=== PATIENT | female | born 1930 | race Caucasian/White ===

== ENCOUNTER 2017-02-11 08:32 | Emergency (ER) | payer OTHER ==
[~2017-02-11] VITALS: Ht 152.4 cm; Wt 61.2 kg
[~2017-02-11 08:32] MED LIST: BP PILL; DILANTIN PO; ENAL20TA PO; ENOX40SY4 SQ; IBUP800T PO; LORA-446 PO; METO25TA35 PO; OMEP-110 PO; OXYC-302 PO; PHEN100C4 PO; SLEEPING PILL; TRAM50TA2 PO
[2017-02-11 08:33] VITALS: BP 157/81
[2017-02-11] MEDS ORDERED: RANI150C PO (09:48)
[2017-02-11] MEDS ORDERED: ZOLP-413 PO (09:48)
[2017-02-11 10:12] LABS: ASPARTATE AMINO TRANSFERASE 24 U/L (15-37); BLOOD UREA NITROGEN 15 mg/dL (7-18)
== END 2017-02-11 10:59 | disposition home or self-care (01) ==
LOC: ED 10:18
DX: R21 Rash and other nonspecific skin eruption (principal); I10 Essential (primary) hypertension
CPT/HCPCS: 36415; 80053; 85025; 99284

== ENCOUNTER 2017-03-11 14:32 | Emergency (ER) | payer OTHER ==
[~2017-03-11] VITALS: Ht 147.3 cm; Wt 60.7 kg
[~2017-03-11 14:32] MED LIST changes: +RANI150C PO; +ZOLP-413 PO
[2017-03-11] MEDS ORDERED: ASPIRIN 81 MG TABLET CHEW ONE (15:11)
[2017-03-11] MEDS ORDERED: MORPHINE SULFATE 4 MG/ML, 1ML ONE (15:11)
[2017-03-11] MEDS ORDERED: ASPIRIN 81 MG TABLET CHEW PO ONE (15:30)
[2017-03-11] MEDS ORDERED: MORPHINE SULFATE 4 MG/ML, 1ML IVPush PRN (15:30)
[2017-03-11 15:48] LABS: BLOOD UREA NITROGEN 13 mg/dL (7-18)
[2017-03-11 15:54] LABS: ASPARTATE AMINO TRANSFERASE 24 U/L (15-37)
[2017-03-11 15:58] LABS: IS PT STATUS REG ER OR PRE ER? YES
[2017-03-11] MEDS ORDERED: OMNIPAQUE 350 MG/ML, 100ML BOTTLE ONE (16:56)
[2017-03-11 17:02] VITALS: BP 163/79
[2017-03-11] MEDS ORDERED: SEIZURE MED PO (17:02)
== END 2017-03-11 18:48 | disposition home or self-care (01) ==
LOC: ED 17:28
DX: R07.9 Chest pain, unspecified (principal); I10 Essential (primary) hypertension; Z85.3 Personal history of malignant neoplasm of breast; Z90.49 Acquired absence of other specified parts of digestive tract; Z90.10 Acquired absence of unspecified breast and nipple
CPT/HCPCS: 36415; 71010; 71275; 80053; 83880; 84484; 85025; 85379; 85610; 85730; 93005; 96374; 99285; Q9967

== ENCOUNTER 2017-11-13 01:10 | Emergency (ER) | payer OTHER ==
[~2017-11-13] VITALS: Ht 157.5 cm; Wt 65.0 kg
[~2017-11-13 01:10] MED LIST changes: +IBUP-1223 PO; -IBUP800T PO; +PHEN50TA4 PO; +SEIZURE MED PO
[2017-11-13 01:11] VITALS: BP 163/87
== END 2017-11-13 03:34 | disposition home or self-care (01) ==
LOC: ED 01:42
DX: S06.0X0A Concussion without loss of consciousness, initial encounter (principal); S16.1XXA Strain of muscle, fascia and tendon at neck level, initial encounter; I10 Essential (primary) hypertension; W01.0XXA Fall on same level from slipping, tripping and stumbling without subsequent striking against object, initial encounter; Y93.01 Activity, walking, marching and hiking; Y92.89 Other specified places as the place of occurrence of the external cause; Y99.8 Other external cause status
CPT/HCPCS: 70450; 72125; 99284

== ENCOUNTER → 2018-03-18 | Outpatient (CLI) | payer OTHER | END | disposition home or self-care (01) | LOC: CFH 07:45 | PROVIDERS: ATTEND Neurological Surgery | DX: M47.896 Other spondylosis, lumbar region (principal); M54.16 Radiculopathy, lumbar region | CPT/HCPCS: 72110; 72148 ==

== ENCOUNTER 2018-06-13 13:39 | Emergency (ER) | payer OTHER ==
[~2018-06-13] VITALS: Ht 142.2 cm; Wt 65.0 kg
[2018-06-13 13:45] VITALS: BP 129/66
== END 2018-06-13 15:37 | disposition home or self-care (01) ==
LOC: ED 15:36
DX: G89.11 Acute pain due to trauma (principal); M25.562 Pain in left knee; X58.XXXA Exposure to other specified factors, initial encounter; Y93.89 Activity, other specified; Y92.89 Other specified places as the place of occurrence of the external cause; Y99.8 Other external cause status
CPT/HCPCS: 99284

== ENCOUNTER 2018-06-18 13:09 | Emergency (ER) | payer OTHER ==
[~2018-06-18] VITALS: Ht 144.8 cm; Wt 63.6 kg
[2018-06-18] MEDS ORDERED: LIDOCAINE 2%, 20ML INFIL ONE (15:00)
[2018-06-18 17:58] VITALS: BP 162/83
== END 2018-06-18 18:07 | disposition home or self-care (01) ==
LOC: ED 14:41
DX: G89.11 Acute pain due to trauma (principal); M25.562 Pain in left knee; G89.29 Other chronic pain; G40.909 Epilepsy, unspecified, not intractable, without status epilepticus; M19.90 Unspecified osteoarthritis, unspecified site; I10 Essential (primary) hypertension; X58.XXXA Exposure to other specified factors, initial encounter; Y93.01 Activity, walking, marching and hiking; Y92.098 Other place in other non-institutional residence as the place of occurrence of the external cause; Y99.8 Other external cause status; Z85.3 Personal history of malignant neoplasm of breast; Z90.49 Acquired absence of other specified parts of digestive tract; Z90.10 Acquired absence of unspecified breast and nipple
CPT/HCPCS: 20610; 82945; 83615; 84157; 84560; 85810; 87070; 87205; 89050; 89060; 99284; J3490

== ENCOUNTER 2019-03-06 13:51 | Inpatient (IN) | payer MEDICARE ==
[~2019-03-06] VITALS: Ht 144.8 cm; Wt 60.0 kg
--- NOTE | 2019-03-06 14:50 | NUR ---
PT TO ROOM FROM LOBBY AT THIS TIME.
--- NOTE | 2019-03-06 14:59 | NUR ---
THIS IS A 88 Y/O FEMAL ARRIVING TO THE ED WITH C/O OF LOWER RECTAL PAIN X 1 WEEK. PT REPORTS HX OF HEMMOROIDS. PT REPORTS SHE HAS SCANT BLOOD WITH WIPING. PT DENIES GROSS BLACK STOOLS. PT HAS HAD BM WITH PAIN. PT REPROTS SHE HAS BEEN TAKING ALL HER MEDICATIONS PERSCRIBED. PT ABLE TO AMBULATE WITH 1 PERSON ASSIST. PT ASSITED TO BATHROOM BY FAMILY FOR UA SAMPLE.
--- NOTE | 2019-03-06 15:15 | NUR ---
PA TO BEDSIDE FOR ASSESSMENT
--- NOTE | 2019-03-06 15:20 | NUR ---
UPON ASSESSMENT OF PT RECTAL AREA, A LARGE PROTRUSION NOTED FORCING THE ANUS TO STICK OUT. NO OBVIOUS HEMRROIDS NOTED.
--- NOTE | 2019-03-06 15:24 | NUR ---
PT TRIED TO URINATE BUT STATES SHE IS UNABLE TO URINATE AT THIS TIME
--- NOTE | 2019-03-06 15:31 | NUR ---
pt ambulatory to bathroom with assistance of family members
--- NOTE | 2019-03-06 16:02 | NUR ---
pt provided urine sample, tubed to lab with blood sample from [facility]
[2019-03-06 16:12] LABS: BASOPHILS # (AUTO) 0.02 x10^3/uL (0-0.1); BASOPHILS % (AUTO) 0 % (0-1); EOSINOPHILS # (AUTO) 0.21 x10^3/uL (0-0.4); EOSINOPHILS % (AUTO) 3 % (1-7); LYMPHOCYTES % (AUTO) 16 % (22-44); MD NO; MEAN CORPUSCULAR HEMOGLOBIN 34.4 pg (27.0-34.8); MEAN CORPUSCULAR HGB CONC 34.1 g/dL (32.4-35.8); MEAN CORPUSCULAR VOLUME 100.9 fL (80-100); MEAN PLATELET VOLUME 7.3 fL (7.4-10.4); MONOCYTES # (AUTO) 0.69 x10^3/uL (0.2-0.8); MONOCYTES % (AUTO) 9 % (2-9); NEUTROPHILS # (AUTO) 5.41 x10^3/uL (1.8-6.8); NEUTROPHILS % (AUTO) 72 % (42-75); PLATELET COUNT 307 x10^3/uL (130-400); RED BLOOD COUNT 4.42 x10^6/uL (3.82-5.3); RED CELL DISTRIBUTION WIDTH 12.5 % (9.6-15.2)
[2019-03-06 16:18] LABS: CULTURE INDICATED? YES; MICROSCOPIC AUTO
[2019-03-06 16:23] LABS: ALBUMIN 3.8 g/dL (3.4-5.0); ANION GAP 5 mmol/L (5-15); CALCIUM 8.7 mg/dL (8.5-10.1); CHLORIDE 94 mmol/L (98-107)
[2019-03-06 16:26] LABS: ALANINE AMINOTRANSFERASE 24 U/L (12-78); ALKALINE PHOSPHATASE 100 U/L (45-117); BILIRUBIN,TOTAL 0.6 mg/dL (0.2-1.0); CREATININE 0.59 mg/dL (0.55-1.02); TOTAL PROTEIN 7.8 g/dL (6.4-8.2)
--- NOTE | 2019-03-06 16:39 | NUR ---
PT TAKEN TO CT
[2019-03-06] MEDS ORDERED: OMNIPAQUE 350 MG/ML, 100ML BOTTLE ONE (17:02)
--- NOTE | 2019-03-06 17:16 | NUR ---
ALL RESULTS BACK AT THIS TIME, CHART UP FOR RECHECK
--- NOTE | 2019-03-06 17:48 | NUR ---
report given to Mary conveyor mechanic
[2019-03-06] MEDS ORDERED: BISACODYL 10 MG SUPP PR PRN (19:30)
[2019-03-06] MEDS ORDERED: hydrALAzine 20 MG/ML, 1ML IVPush PRN (19:30)
[2019-03-06] MEDS ORDERED: ONDANSETRON 2MG/ML, 2ML IVPush PRN (19:30)
[2019-03-06] MEDS ORDERED: LIDODERM 5% PATCH TD PRN (19:30)
[2019-03-06] MEDS: LORazepam 1MG TABLET PO PRN (22:18)
[2019-03-06] MEDS: PHENYTOIN 100 MG CAPSULE PO SCH (22:18)
[2019-03-06] MEDS: ENALAPRIL 20MG TABLET PO SCH (22:18)
[2019-03-06] MEDS: ACETAMINOPHEN 325 MG TABLET PO PRN (22:47)
[2019-03-06] MEDS: TEMAZEPAM 15 MG CAPSULE PO PRN (23:44)
[2019-03-06] MEDS: CEFTRIAXONE PMX 1GM/50ML 50 ML IV SCH (23:44)
[2019-03-07 01:48] VITALS: BP 148/62
[2019-03-07 04:37] LABS: BASOPHILS # (AUTO) 0.03 x10^3/uL (0-0.1); BASOPHILS % (AUTO) 0 % (0-1); EOSINOPHILS # (AUTO) 0.25 x10^3/uL (0-0.4); EOSINOPHILS % (AUTO) 4 % (1-7); LYMPHOCYTES # (AUTO) 1.12 x10^3/uL (1-3.4); LYMPHOCYTES % (AUTO) 18 % (22-44); MD NO; MEAN CORPUSCULAR HEMOGLOBIN 33.8 pg (27.0-34.8); MEAN CORPUSCULAR HGB CONC 33.6 g/dL (32.4-35.8); MEAN CORPUSCULAR VOLUME 100.6 fL (80-100); MEAN PLATELET VOLUME 7.3 fL (7.4-10.4); MONOCYTES % (AUTO) 11 % (2-9); NEUTROPHILS # (AUTO) 4.01 x10^3/uL (1.8-6.8); NEUTROPHILS % (AUTO) 66 % (42-75); PLATELET COUNT 264 x10^3/uL (130-400); RED BLOOD COUNT 4.31 x10^6/uL (3.82-5.3); RED CELL DISTRIBUTION WIDTH 12.2 % (9.6-15.2)
[2019-03-07 04:43] LABS: ANION GAP 8 mmol/L (5-15); CHLORIDE 96 mmol/L (98-107)
[2019-03-07] MEDS: PHENYTOIN 100 MG CAPSULE PO SCH ×3 (06:08→21:01)
[2019-03-07 08:23] VITALS: BP 138/77
[2019-03-07] MEDS: ENALAPRIL 20MG TABLET PO SCH ×2 (09:12→21:01)
[2019-03-07 13:47] VITALS: BP 144/78
[2019-03-07] MEDS ORDERED: GOLYTELY 4,000ML ORAL.SOL PO ONE (17:00)
[2019-03-07 20:57] VITALS: BP 148/84
[2019-03-07] MEDS: LORazepam 1MG TABLET PO PRN (21:05)
[2019-03-07] MEDS: ACETAMINOPHEN 325 MG TABLET PO PRN (21:22)
[2019-03-07] MEDS: CEFTRIAXONE PMX 1GM/50ML 50 ML IV SCH (22:55)
[2019-03-07] MEDS: TEMAZEPAM 15 MG CAPSULE PO PRN (22:55)
[2019-03-08 00:42] VITALS: BP 143/78
[2019-03-08 07:32] LABS: BASOPHILS # (AUTO) 0.01 x10^3/uL (0-0.1); BASOPHILS % (AUTO) 0 % (0-1); EOSINOPHILS % (AUTO) 3 % (1-7); LYMPHOCYTES # (AUTO) 0.86 x10^3/uL (1-3.4); LYMPHOCYTES % (AUTO) 15 % (22-44); MD NO; MEAN CORPUSCULAR HEMOGLOBIN 33.2 pg (27.0-34.8); MEAN CORPUSCULAR HGB CONC 33.7 g/dL (32.4-35.8); MEAN CORPUSCULAR VOLUME 98.7 fL (80-100); MEAN PLATELET VOLUME 6.9 fL (7.4-10.4); MONOCYTES # (AUTO) 0.71 x10^3/uL (0.2-0.8); MONOCYTES % (AUTO) 12 % (2-9); NEUTROPHILS # (AUTO) 4.03 x10^3/uL (1.8-6.8); NEUTROPHILS % (AUTO) 69 % (42-75); PLATELET COUNT 264 x10^3/uL (130-400); RED CELL DISTRIBUTION WIDTH 12.6 % (9.6-15.2)
[2019-03-08 07:41] LABS: ALANINE AMINOTRANSFERASE 22 U/L (12-78); ALBUMIN 3.1 g/dL (3.4-5.0); ANION GAP 6 mmol/L (5-15); CALCIUM 8.1 mg/dL (8.5-10.1); CHLORIDE 97 mmol/L (98-107)
[2019-03-08 07:44] LABS: ALKALINE PHOSPHATASE 64 U/L (45-117); BILIRUBIN,TOTAL 0.4 mg/dL (0.2-1.0); CREATININE 0.64 mg/dL (0.55-1.02); TOTAL PROTEIN 6.5 g/dL (6.4-8.2)
[2019-03-08 07:50] VITALS: BP 120/57
[2019-03-08] MEDS: ENALAPRIL 20MG TABLET PO SCH (09:00)
[2019-03-08] MEDS: PHENYTOIN 100 MG CAPSULE PO SCH (09:00)
[2019-03-08] MEDS ORDERED: PROPOFOL 10 MG/ML, 20ML ONE (09:43)
[2019-03-08] MEDS ORDERED: ONDANSETRON ODT 8 MG PO PRN (10:00)
[2019-03-08] MEDS ORDERED: ONDANSETRON 2MG/ML, 2ML IV PRN (10:00)
[2019-03-08] MEDS ORDERED: FENTANYL PF 100 MCG/2ML IV PRN (10:00)
[2019-03-08] MEDS ORDERED: ACETAMINOPHEN 325 MG TABLET PO PRN (10:00)
[2019-03-08] MEDS ORDERED: OXYcodone 5 MG/5 ML ORAL.SOL UDC PO PRN (10:00)
[2019-03-08 13:45] VITALS: BP 117/75
[2019-03-08] MEDS ORDERED: SENN17.23 PO (14:52)
== END 2019-03-08 16:30 | disposition home or self-care (01) | DRG 394 ==
LOC: ED 17:14 → EDIP 17:15 → ED 17:20 → 3NW 18:47 → DCLOUNGE 03-08 16:23
PROVIDERS: ADMIT Internal Medicine; ATTEND Internal Medicine
PROC: 0DJD8ZZ Inspection of Lower Intestinal Tract, Via Natural or Artificial Opening Endoscopic (ICD-10-PCS; principal; 2019-03-08 10:00)
DX: K64.1 Second degree hemorrhoids (principal); K62.5 Hemorrhage of anus and rectum; E87.1 Hypo-osmolality and hyponatremia; N39.0 Urinary tract infection, site not specified; G40.909 Epilepsy, unspecified, not intractable, without status epilepticus; Z96.659 Presence of unspecified artificial knee joint; K59.00 Constipation, unspecified; I10 Essential (primary) hypertension; R32 Unspecified urinary incontinence; Z85.3 Personal history of malignant neoplasm of breast; Z90.12 Acquired absence of left breast and nipple
CPT/HCPCS: 36415; 72193; 80048; 80053; 80185; 81001; 82607; 85025; 87086; 99285; G0378; J0696; J2704; Q9967